=== PATIENT | female | born 1970 | race Caucasian/White ===

== ENCOUNTER 2018-06-10 10:24 | Emergency (ER) | payer OTHER, SELFPAY ==
[2018-06-10 10:25] VITALS: BP 182/102; PULSE 98; RESP 16; TEMP 36.8; O2SAT 100; BMI 25.7
[2018-06-10] MEDS: Ondansetron ODT 4 MG Tablet PO (11:16)
[2018-06-10 12:48] VITALS: BP 185/94; PULSE 87; RESP 16; O2SAT 99
--- NOTE | 2018-06-10 12:59 | ED.VISSUMM ---
- ER Visit Summary Date of Service: 06/10/18 Chief Complaint: Acute paroxysmal visual disturbance with balance instability History of Present Illness: The patient is a 47 F who reports Sunday morning getting out of bed she developed spinning sensation with blurred vision not double vision. When asked to define what she means by double vision she did not report seeing 2 things things not looking crisp or clear. She does complain of bifrontal head discomfort which is better with pressure. She denies ringing in her ears. Does complain of nausea without vomiting. She denies trouble with speech or swallowing. She denies paresthesia, anesthesia or motor weakness. She denies any cardiac respiratory symptoms. She reports improvement/resolution with closing her eyes. She reports symptoms when she turns quickly. She states her blood pressure is always elevated first time it has taken. She has white coat syndrome. Physical Examination: Blood pressure is elevated. Heart is regular without murmur, gallop or rub. S1 and S2 are normal. Lungs are clear to auscultation with good movement of air bilaterally. Head is atraumatic normocephalic. Pupils are equal round reactive. Extraocular muscles are intact. TMs are pearly white with landmarks noted. Nares patent with no drainage. Posterior pharynx without erythema or exudate. Uvula is midline. There is no dysphonia or dysphasia. Trachea is midline. There is no stridor with auscultation of the neck. Funduscopic exam reveals normal cup-to-disc ratio with no papilledema. Venous pulsations noted bilaterally. There is no tenderness to percussion of the frontal, ethmoid or maxillary sinuses. Abdomen is soft nontender. Patient is alert and oriented ?3. Motor is 5 over 5. Sensory is intact. DTRs are symmetric with no clonus or Babinski sign. Cranial 2 through 12 are intact. Cerebellar testing is normal. Gait observed and normal. Michelle-Hallpike maneuver was positive with turning of the head to the right. There was fine nystagmus noted. She reported exacerbation of her symptoms. Test Results: Visual acuity 20/40 right eye 20/25 left eye 20/25 both eyes Emergency Department Course and Treatment: With a positive Harmans-Hallpike maneuver Jamie maneuver was performed. She had resolution of her vertigo but complained of persistent mild nausea. Treatment Plan: Prescription for Valium 2 mg 3 times daily #10 Disposition: Discharged to home Impression: Paroxysmal benign positional vertigo with crystal manipulation This note was generated with [employer] dictation software. It may contain incorrect words, spelling, and punctuation that were not noted in review of the chart prior to signing ED Disposition - Plan for ED Patient: Disposition: Home or Assisted Living Chief Complaint: Headache Instructions: ED BPV Vertigo Prescriptions: Diazepam [Valium] 2 mg PO TID 3 Days #10 tab Referrals: Doctor,Your [STAFF PHYSICIAN] - As Needed
== END 2018-06-10 13:18 | disposition home or self-care (01) ==
PROVIDERS: Emergency Provider Emergency Medicine
DX: H81.11 Benign paroxysmal vertigo, right ear (principal)
CPT/HCPCS: 99283